=== PATIENT | male | born 1950 | race American Indian/Alaskan Native ===

== ENCOUNTER 2020-10-08 06:12 | Day surgery (SDC) | payer MEDICARE ==
[~2020-10-08 06:12] MED LIST: LACTATED RINGERS 1,000 ML IV SCH
[2020-10-08] MEDS ORDERED: HYDROmorphone 1 MG/1 ML INJ IV PRN (07:35)
[2020-10-08] MEDS ORDERED: ONDANSETRON 4 MG/2 ML INJ IV PRN (07:35)
[2020-10-08] MEDS ORDERED: HYDROcodone/ACETAMINOPHEN 5-325 MG TAB PO PRN (07:35)
--- NOTE | 2020-10-08 07:35 | Anesthesia Consultation ---
Anesthesia Consult and Med Hx Date of service: 10/08/20 - Airway Anesthetic Teeth Evaluation: Good, Dentures (upper) ROM Head & Neck: Adequate Mental/Hyoid Distance: Adequate Mallampati Class: Class III Intubation Access Assessment: Possibly Difficult - Pre-Operative Health Status ASA Pre-Surgery Classification: ASA2 Proposed Anesthetic Plan: General - Pulmonary Hx Smoking: Yes (former smoker quit 30+ yrs) Hx Respiratory Symptoms: No Hx Sleep Apnea: No (KARL PRE SCREEN HIGH RISK) - Cardiovascular System Hx Hypertension: No Hx Heart Attack/AMI: No Hx Percutaneous Transluminal Coronary Angioplasty (PTCA): No Hx Cardia Arrhythmia: No - Central Nervous System CVA: No Hx Back Pain: Yes - Endocrine Hx Renal Disease: No Hx Liver Disease: No Hx Insulin Dependent Diabetes: No Hx Non-Insulin Dependent Diabetes: No Hx Thyroid Disease: No - Other Systems Hx Obesity: Yes (BMI 35) - Additional Comments Anesthesia Medical History Comments: No hx anesthetic complications.
--- NOTE | 2020-10-08 07:35 | Anesthesia Day of Surgery ---
Anesthesia Day of Surgery - Day of Surgery Patient Examined: Yes Patient H&P Reviewed: Yes Patient is NPO: Yes
[2020-10-08] MEDS ORDERED: GENTAMICIN/NS 80 MG/100 ML 100 ML IV ONE ×2 (07:59→08:30)
[2020-10-08] MEDS ORDERED: ceFAZolin/Water 2 GM/20 ML 2 GM/20 ML SYRINGE IV ONE (08:00)
[2020-10-08] MEDS ORDERED: GENTAMICIN 40 MG/ML VIAL 2 ML IM ONE (08:05)
[2020-10-08] MEDS ORDERED: ceFAZolin/STERILE WATER 2 GM/20 ML SYRINGE IV NR (09:00)
[2020-10-08] MEDS ORDERED: propofoL 200 MG/20 ML VIAL IV ONE (09:12)
[2020-10-08] MEDS ORDERED: LIDOCAINE MPF (2%) 20 MG/1 ML VIAL 5 ML ONE (09:12)
[2020-10-08] MEDS ORDERED: ONDANSETRON 4 MG/2 ML INJ ONE (09:22)
[2020-10-08] MEDS ORDERED: HYDROmorphone 1 MG/1 ML INJ ONE (09:22)
--- NOTE | 2020-10-08 09:51 | Short Stay Summary ---
Short Stay Documentation Date of service: 10/08/20 - History H&P: obtained from office - Allergies and Medications Current Medications: Allergies No Known Allergies Allergy (Verified 10/03/20 15:19) Home Medications Medication Instructions Recorded Confirmed Last Taken Type Cyclobenzaprine [Flexeril] 10 mg PO TID PRN 10/03/20 10/08/20 09/25/20 09:00 History Sulindac 200 mg PO PRN PRN 10/03/20 10/08/20 09/25/20 09:00 History Tamsulosin [Flomax] 0.4 mg PO QDAY 10/03/20 10/08/20 09/25/20 09:00 History Active Medications Hydrocodone Bitart/Acetaminophen (Hydrocodone/Acetaminophen 5-325 Mg Tab) 2 each PO ONCE PRN PRN Reason: Pain, Moderate (4-6) Stop: 10/08/20 20:00 Hydromorphone HCl (Hydromorphone 1 Mg/1 Ml Inj) 0.5 mg IV Q10MIN PRN PRN Reason: Pain , Severe (7-10) Stop: 10/08/20 23:00 Lactated Ringer's (Lactated Ringers) 1,000 mls @ 100 mls/hr IV DIRECT ANDREW Stop: 10/08/20 23:59 Ondansetron HCl (Ondansetron 4 Mg/2 Ml Inj) 4 mg IV ONCE PRN PRN Reason: Nausea And Vomiting Stop: 10/08/20 20:00 - Brief post op/procedure progress note Date of procedure: 10/08/20 Pre-op diagnosis: BPH, ELEVATED PSA Post-op diagnosis: other (URETHRAL STRICTURE) Procedure: CYSTO., DVIU, PUS 40CC 12 BX Anesthesia: GETA Surgeon: ERON CASH Pathology: list (12 CORE --- PROSTATE) Specimen disposition: to lab Condition: stable - Hospital course Hospital course: BACTRIM & NORCO ON CHART (ERX ALSO) - Disposition Condition at discharge: Stable Disposition: DC-01 TO HOME OR SELFCARE Short Stay Discharge Plan Follow up with: VITOR PUGA MD [Primary Care Provider] - 7 Days
[2020-10-08] MEDS ORDERED: WATER FOR IRRIG STERILE 1,500 ML BOTTLE IR ONE (10:04)
[2020-10-08] MEDS ORDERED: WATER FOR IRRIG STERILE 2000 ML IR ONE (10:04)
--- NOTE | 2020-10-08 10:17 | Ultrasound Report ---
ULTRASOUND TRANSRECTAL HISTORY: Elevated PSA. Ultrasound-guided prostate biopsy. COMPARISON: None. FINDINGS: Transrectal ultrasound guidance was provided by radiology during ultrasound-guided prostate biopsy by urology. Prostate volume measures 34.1 cc. IMPRESSION: Successful ultrasound-guided prostate biopsy by urology. Signer Name: Donald Oneill Jr, MD Signed: 10/08/2020 10:12 AM Workstation Name: [id number]
[2020-10-08 10:30] VITALS: BP 121/74
--- NOTE | 2020-10-08 10:47 | Post Anesthesia Evaluation ---
- Post Anesthesia Evaluation Patient Participated: Yes Airway Patent: Yes Stable Respiratory Function: Yes Nausea/Vomiting: No Temp > 96.8F: Yes Pain Manageable: Yes Adequeate Hydration: Yes Anesthesia Complications: No
--- NOTE | 2020-10-08 10:48 | Operative Report ---
DATE OF SURGERY: 10/08/2020 PREOPERATIVE DIAGNOSES: 1. Elevated PSA. 2. Benign prostatic hypertrophy. POSTOPERATIVE DIAGNOSES: 1. Elevated PSA. 2. Benign prostatic hypertrophy. 3. Urethral stricture. PROCEDURE PERFORMED: Cystoscopy, bilateral retrograde pyelograms, direct vision internal urethrotomy, prostate ultrasound biopsy (40 mL prostate). SURGEON: Fadi Hoyt MD ANESTHESIA: General. ESTIMATED BLOOD LOSS: Minimal. FLUIDS: Crystalloid. COMPLICATIONS: No complications. INDICATIONS: This is a 70-year-old gentleman known to our service with an elevated PSA of 12 in the past. Prostate biopsy in 2014 was negative. Recently, he was seen again in 2019 for PSA of 65. MRI suggests small lesion on the left side. He presents now for evaluation and biopsy. Risks, benefits, and complications were explained. DESCRIPTION OF PROCEDURE: The patient was taken to the operative suite, placed in a supine position. After adequate general anesthesia, placed in the dorsal lithotomy position, prepped and draped in a sterile fashion. Pancystourethroscopy was performed with a 22-[place] Storz cystoscope. A tight bulbar stricture could be appreciated. I was able to thread a 0.035 Glidewire into the bladder without difficulty. Cold knife was used to make a cut at the 12 o'clock position. I was able to advance the scope without difficulty. It was switched out for a 22-[place] cystoscope. The patient had some mild to moderate bi-lobe obstruction, diffuse trabeculation in the bladder, no tumors or stones. Both ureteral orifices in normal position. Bilateral retrograde pyelograms were obtained with an 8-[place] Tate catheter and 8 mL of contrast. No filling defects or obstruction. Wire was left in place. The scope was removed. Transrectal ultrasound was performed. Sagittal and transverse images were obtained, 40 gram gland, possible small lesion on the left. Twelve core biopsies were performed without difficulty, 4 at the base, 4 at the mid, 4 at the apex. Very good course could be appreciated and therefore no saturation was needed. The patient did not want to have a fusion biopsy done. Rectal exam was benign. A 16-[place] catheter was placed over a wire. Clear urine. Rectal exam was benign. He was extubated and taken to the recovery room. He will go home on [place] and [place] and follow up in the office. TID: [id number] RECEIPT: [id number] [facility]/RUBY
--- NOTE | 2020-10-08 13:38 | Fluoroscopy Report ---
4 fluoroscopic images submitted Indication: Intraoperative localization Impression: 4 images of the abdomen were submitted for documentation purposes with radiology involve ment. Patient had bilateral retrograde pyelograms with reported bladder/prostate biopsy. Please ref er to the operative note for complete details. Fluoroscopic time: 0.1 minutes Signer Name: Parker Snyder MD Signed: 10/08/2020 1:34 PM Workstation Name: [id number]
== END 2020-10-08 06:13 | disposition home or self-care (01) ==
LOC: OR 06:12
PROVIDERS: ATTEND Urology
DX: R97.20 Elevated prostate specific antigen [PSA] (principal); N40.0 Benign prostatic hyperplasia without lower urinary tract symptoms; Z20.822 Contact with and (suspected) exposure to COVID-19; N35.812 Other bulbous urethral stricture, male; C61 Malignant neoplasm of prostate; E66.9 Obesity, unspecified; Z87.891 Personal history of nicotine dependence; Z79.899 Other long term (current) drug therapy; Z98.49 Cataract extraction status, unspecified eye; Z98.890 Other specified postprocedural states; Z68.35 Body mass index [BMI] 35.0-35.9, adult
CPT/HCPCS: 52276; 55700; 74420; 76872; 88305; A4217; C1758; C1769; J0690; J1170; J1580; J2405; J2704; J7120; Q9967; U0003

== ENCOUNTER 2020-10-30 07:53 | Outpatient (CLI) | payer MEDICARE ==
--- NOTE | 2020-10-30 09:06 | Cat Scan Report ---
CT ABDOMEN AND PELVIS WITHOUT CONTRAST HISTORY: MALIGNANR NEOPLASM OF PROSTATE COMPARISON: None. TECHNIQUE: Axial CT images were obtained through the abdomen and pelvis without IV contrast. Sagittal and coronal reformatted images. All CT scans at this location are performed using CT dose reduction for ALARA by means of automated exposure control. FINDINGS: CT ABDOMEN: Lung Bases: Clear. Liver: No significant abnormality. Biliary: A 1.5 cm calcified gallstone is noted. No biliary dilatation or wall thickening. Spleen: No significant abnormality. Unenlarged. Pancreas: No significant abnormality. Adrenals: No significant abnormality. Kidneys: No significant abnormality. Lymphatics: No lymphadenopathy. Vasculature: No significant abnormality. Bowel/Peritoneum: No significant abnormality. No free air. No free fluid. CT PELVIS: : No significant abnormality. The prostate gland measures 4.9 cm in diameter. Osseous Structures: There is moderate multilevel thoracolumbar spondylosis. No suspicious bony lesion is detected. Additional Findings: None IMPRESSION: Cholelithiasis, otherwise, unremarkable exam. No evidence for metastatic disease to the abdomen or pe lvis. Signer Name: Donald Oneill Jr, MD Signed: 10/30/2020 9:01 AM Workstation Name: [id number]
--- NOTE | 2020-10-30 14:03 | Nuclear Medicine Report ---
NUCLEAR MEDICINE BONE SCAN, WHOLE BODY INDICATION / CLINICAL INFORMATION: MALIGNANT NEOPLASM OF PROSTATE. Initial bone scan. Patient has a b ad tooth lower right side. Bilateral knee pain. TECHNIQUE: 26.3 mCi of Tc-99m MDP were injected IV. Images were obtained of the whole body. COMPARISON: CT abdomen pelvis dated 10/30/20 FINDINGS: BONES: Focal uptake in the right jaw related to dental disease. No other focus of abnormal uptake. JOINTS: Degenerative activity in both shoulders, both knees, and both great toes. Degenerative activi ty in multiple levels throughout the thoracal lumbar spine. SOFT TISSUES: No significant abnormality. KIDNEYS: No significant abnormality. ADDITIONAL FINDINGS: None. IMPRESSION: 1. No scintigraphic evidence for osseous metastatic disease. 2. Dental activity in the right jaw. 3. Multifocal degenerative activity. Signer Name: Dania Stevens MD Signed: 10/30/2020 1:58 PM Workstation Name: [id number]
== END 2020-10-30 07:54 | disposition home or self-care (01) ==
LOC: NM 07:53
PROVIDERS: ATTEND Urology
DX: C61 Malignant neoplasm of prostate (principal); K80.20 Calculus of gallbladder without cholecystitis without obstruction; M47.815 Spondylosis without myelopathy or radiculopathy, thoracolumbar region
CPT/HCPCS: 74176; 78306; A9503